=== PATIENT | female | born 1950 | race Caucasian/White ===

== ENCOUNTER → 2016-11-21 | Outpatient (CLI) | payer MEDICARE, OTHER ==
[~2016-11-21] MED LIST: ABILIFY5 MG PO; ALBUTEROL 0.5ML INH; ALBUTEROL17 GM INH; ALBUTEROL2.5 MG/0.5 INH; ATENOLOL PO; AUGMENTIN875 M1 PO; AZITHROMYCIN250 MG PO; BACLOFEN10 MG; BACLOFEN10 MG PO; CHANTIX PO; CIPRO PO; DARVOCET-N 1001 TAB; DIAZEPAM; DIAZEPAM PO; DICLOFENAC; DOCUSATE SODIUM1 TAB PO; EFFEXOR; FLAGYL PO; FLEXERIL10 MG PO; HYCODAN60 ML 5MG/ DOB; HYDROCODON-ACE1 EAC7 PO; HYDROCODON-ACE1 EAC9 PO; LEVAQUIN PO; LIPITOR20 MG PO; LORTAB 5/500 TA1 TA1 PO; MEDROL DOSEPAK4 MG PO; MERREM500 MG INJ; NAPROSYN500 MG PO; NAPROXEN250 MG PO; NICOTINE TRANSD14 MG EXT; NICOTINE TRANSD21 MG EXT; NORCO1 TAB 10/3 PO; PAXIL PO; PAXIL30 MG PO; PAXIL40 MG PO; PHENERGAN25 M1 DOB; PHENERGAN25 M1 PO; PHENERGAN25 MG PO; PREDNISONE PO; PROAIR HFA8.5 GM IH; SEROQUEL; SEROQUEL PO; SEROQUEL XR400 M1 PO; SYMBICORT INH; TYLENOL #3 PO; VALIUM5 MG/M1 PO; VICODIN PO; VOLTAREN75 MG PO; WELLBUTRIN PO; ZITHROMAX PO; ZOFRAN ODT4 MG PO
--- NOTE | ~2016-11-21 | MY29 ---
[facility] A Service of [facility] RADIOLOGY TEXT RESULTS PATIENT: SO SMITH LOCATION: [facility] : 54 UNIT #: [id number] AGE: [address]: Jak Leon MD SEX: F ORDER DR: [id number] [facility]. [place], [place] [address] [id number] O MR#: [id number] Acc #: [id number] NAME: SO SMITH. : 1950 SEX: F STUDY DATE/TIME: 11/21/2016 11:31 UNIT: [facility] ROOM: STUDY DESCRIPTION: [facility] SCREENING W/ CAD BILAT Attending Physician: Jak Leon M.D. Referring Physician: Jak Leon M.D. Ordering Physician: Jak Leon M.D. Primary Care Physician: Jak Leon M.D. MEDICAL IMAGING REPORT This report is preliminary unless electronic signature is present EXAM Digital screening mammogram, 11/21/2016; [facility]. HISTORY 66-year-old woman positive family history, mother age 55. New baseline mammogram. COMPARISON None. Prior mammogram 30 years ago, [facility]. TECHNIQUE Digital imaging of each breast was completed utilizing screening protocol. Review includes FDA-approved CAD device. FINDINGS Breast parenchyma is fatty replaced. There are secretory calcifications identified more so in the right breast. I see no breast mass. There are no suspicious microcalcifications and no architectural distortion. IMPRESSION Negative new baseline mammogram. Annual screening recommended. BIRADS 1. Patients over the age of 40 are entered into a reminder system with target due date for the next mammogram. A result letter will also be sent to the patient. BIRADS: 1 Negative. Dictated by... Reg Cruz M.D. [facility] A Service of [facility] RADIOLOGY TEXT RESULTS PATIENT: SO SMITH LOCATION: [facility] : 54 UNIT #: [id number] AGE: [address]: Jak Leon MD SEX: F ORDER DR: THIS IS AN ELECTRONICALLY VERIFIED REPORT Reg Cruz M.D. at 11/22/2016 8:06 AM Rubia TD: 11/21/2016 20:21 JOB #: [id number] MEDICAL IMAGING REPORT Page 1 of 1 COPY
--- NOTE | ~2016-11-21 | CT55 ---
[facility] A Service of [facility] & [facility] RADIOLOGY TEXT RESULTS PATIENT: SO SMITH LOCATION: [facility] : 54 UNIT #: [id number] AGE: [address]: Jak Leon MD SEX: F ORDER DR: [id number] [facility] [address] [facility]. [place], [place] [address] [id number] O MR#: [id number] [facility] #: [id number] NAME: SO SMITH : 1950 SEX: F STUDY DATE/TIME: 11/21/2016 10:19 UNIT: [facility] ROOM: STUDY DESCRIPTION: CT Chest W Con Attending Physician: Jak Leon M.D. Referring Physician: Jak Leon M.D. Ordering Physician: Jak Leon M.D. Primary Care Physician: Jak Leon M.D. MEDICAL IMAGING REPORT This report is preliminary unless electronic signature is present EXAM CT chest with contrast DATE 11/21/2016 HISTORY 66-year-old female with shortness of breath and cough for 1 year. Abnormal chest x-ray October 2016. On CPAP at night. COPD. COMPARISON CT chest 06/23/2013 and 01/30/2005. PROCEDURE 5 mm axial images through the chest after intravenous contrast administration. Sagittal and coronal reformatted images were obtained. This CT exam was performed with one or more of the following radiation dose reduction techniques: Automatic exposure control, adjustment of mA and/or kV according to patient size, and iterative reconstruction. FINDINGS Physician's history states, "Consolidation and anterolateral chest on chest x-ray 11/01." However, there is no chest radiograph at this institution from October 2016 for comparison and the location of this radiograph is not provided. No dense lung consolidations are identified on today's examination. However, faint ground-glass densities are demonstrated within the anterior left upper lobe and inferomedial right upper lobe with intervening mild linear interstitial thickening. These findings have a similar appearance to the 06/23/2013 examination, and is thought to represent changes of chronic interstitial fibrosis. Mild centrilobular and paracentral emphysematous changes predominate in the apices. These findings have STS. [facility] A Service of [facility] RADIOLOGY TEXT RESULTS PATIENT: SO SMITH LOCATION: [facility] : 54 UNIT #: [id number] AGE: [address]: Jak Leon MD SEX: F ORDER DR: developed or progressed when compared to the more chest CT from 2004. No abnormal bronchial wall thickening or bronchiectasis is identified. There is no pericardial effusion or pleural effusion. No pathologic adenopathy. Heart size within normal limits. Mild prominence of mediastinal fat. Cholecystectomy. 7 mm nonobstructing stone in the right upper renal pole with adjacent cortical scarring. Diverticular changes are seen within the splenic flexure of the colon. The remainder of included upper abdominal organs are within normal limits. No acute osseous abnormalities. IMPRESSION 1. No acute chest findings. No consolidative changes are evident. Please correlate with outside chest radiograph documented to have been performed October 2016 (location unknown at the time of this interpretation). 2. Features of mild interstitial fibrosis anteriorly in the left upper lobe and inferomedial in the right upper lobe, similar to the 2014 exam. 3. Mild paracentral and centrilobular emphysema in the apices. 4. A 7 mm nonobstructing right renal stone with right renal cortical scarring. 5. Cholecystectomy. Dictated by... Connie Schumacher M.D. THIS IS AN ELECTRONICALLY VERIFIED REPORT Connie Schumacher M.D. at 11/23/2016 8:42 AM ALEXIS/renetta TD: 11/22/2016 14:22 JOB #: [id number] MEDICAL IMAGING REPORT Page 1 of 1 COPY
[2016-11-21 12:31] LABS: POC - CREATININE 1.01 mg/dL (0.44-1.03)
== END | disposition home or self-care (01) ==
LOC: CCAT 11-14 14:00
PROVIDERS: Internal Medicine
DX: Z12.31 Encounter for screening mammogram for malignant neoplasm of breast (principal); J18.1 Lobar pneumonia, unspecified organism; J43.2 Centrilobular emphysema; N20.0 Calculus of kidney; N28.89 Other specified disorders of kidney and ureter; Z80.3 Family history of malignant neoplasm of breast; Z90.49 Acquired absence of other specified parts of digestive tract
CPT/HCPCS: 71260; 82565; G0202; Q9967